=== PATIENT | male | born 1955 | race Caucasian/White ===

== ENCOUNTER → 2017-10-14 | Outpatient (CLI) | payer BC ==
--- NOTE | 2017-10-15 10:47 | TST ---
[place] [address] TREADMILL STRESS TEST Name: ANAYELI HIGUERA SR Room: [facility]#: [id number] Admission: 10/14/17 Attend Phys: Yamil Juarez, Discharge: Date of : 53 Date of Service: 10/14/17 1656 Report #: [id number] THIS REPORT FOR: //name// CC: [facility] DATE OF SERVICE: 10/14/2017 Resting 12-lead electrocardiogram demonstrates sinus rhythm and a borderline tachycardic rate; tracing is otherwise normal ____. The patient exercised for 7 minutes and 16 seconds of a standard Markos protocol, stopping because of fatigue, but denying chest discomfort. Resting heart rate was 110 with a peak of 164 exceeding the age-predicted maximum. Blood pressure was 158/81 initially. It increased to 233/91 at peak exercise, falling to 147/85 during the post-exercise phase. There were no ischemic ST-T alterations noted during the post-exercise. There were no significant supraventricular or ventricular arrhythmias. IMPRESSION: 1. Negative treadmill exercise test for provocation of ischemic ST-T alterations. 2. No chest pain provoked by exertion. 3. Appropriate heart rate and systolic blood pressure responses to exercise. 4. Mild systolic hypertension at rest. 5. No significant arrhythmias noted. 6. Satisfactory level of fitness for age. <ELECTRONICALLY SIGNED> By: Yamil Ruiz MD, [facility] 10/15/17 1047 [id number] [id number] Yamil Ruiz MD, [facility] /nt
== END ==
LOC: M.CRD 10:26
DX: R94.31 Abnormal electrocardiogram [ECG] [EKG] (principal)

== ENCOUNTER → 2018-08-25 | Outpatient (CLI) | payer BC | LOC: M.NUC 07:12 | DX: R10.11 Right upper quadrant pain (principal) ==